=== PATIENT | male | born 1945 | race Caucasian/White ===

== ENCOUNTER 2018-02-04 07:50 | Emergency (ER) | payer OTHER, MEDICAID ==
[~2018-02-04] VITALS: Ht 170.2 cm; Wt 73.5 kg
[2018-02-04 08:02] VITALS: Ht 170.2 cm; Wt 73.5 kg
[2018-02-04 08:54] VITALS: BP 170/95
== END 2018-02-04 08:54 | disposition home or self-care (01) ==
LOC: ED 07:50
DX: B02.9 Zoster without complications (principal); I10 Essential (primary) hypertension

== ENCOUNTER 2018-10-26 14:21 | Emergency (ER) | payer OTHER, MEDICAID ==
[~2018-10-26] VITALS: Ht 170.2 cm; Wt 74.8 kg
[2018-10-26 14:48] VITALS: Ht 170.2 cm; Wt 74.8 kg
[2018-10-26 16:07] VITALS: BP 135/86
== END 2018-10-26 16:07 | disposition home or self-care (01) ==
LOC: ED 14:21
DX: K40.90 Unilateral inguinal hernia, without obstruction or gangrene, not specified as recurrent (principal); I10 Essential (primary) hypertension; Z98.890 Other specified postprocedural states